=== PATIENT | female | born 1995 | race Two or more races ===

== ENCOUNTER 2019-12-26 22:09 | Emergency (ER) | payer OTHER ==
[~2019-12-26] VITALS: Ht 165.1 cm; Wt 125.6 kg
[2019-12-27 00:23] VITALS: BP 139/72
== END 2019-12-27 00:34 | disposition home or self-care (01) ==
LOC: ER 22:12
DX: Z32.02 Encounter for pregnancy test, result negative (principal); E11.9 Type 2 diabetes mellitus without complications; F12.10 Cannabis abuse, uncomplicated
CPT/HCPCS: 36415; 84702